=== PATIENT | male | born 1980 | race Caucasian/White ===

== ENCOUNTER 2018-10-17 11:00 | Emergency (ER) | payer OTHER ==
[2018-10-17] MEDS ORDERED: Sodium Chloride 0.9% 1,000 ML IV ONE (11:23)
[2018-10-17] MEDS ORDERED: Ondansetron 4 MG/2 ML SDV IVPUSH ONE (11:23)
--- NOTE | 2018-10-17 11:29 | EDM.PDOC ---
ED HPI GENERAL MEDICAL PROBLEM - General Chief Complaint: Gastrointestinal Problem Stated Complaint: POSS STAPH INFECTION Time Seen by Provider: 10/17/18 11:18 Source of Information: Reports: Patient History Limitations: Reports: No Limitations - History of Present Illness INITIAL COMMENTS - FREE TEXT/NARRATIVE: HISTORY AND PHYSICAL: History of present illness: Patient is a 38-year-old male presents to the ED today with concern for numerous episodes of diarrhea and nausea. Patient states this is ongoing the past 3 days and he has not been able to eat or drink much. He states today he has not been able to eat or drink anything but yesterday has had about half of his usual amount of food and fluids. He describes the diarrhea as watery and occurs every 15-20 minutes. He denies odor of the stool. Patient states he has not had any pain with this. He states he has not vomited but has several episodes where he thought he was. He states he has had a fever the past 2 days and has been taking Tylenol to keep it down. He states he has been sweating constantly. Patient denies chest pain, shortness of breath, or cough. Denies headache, neck stiff ness, change in vision, syncope, or near syncope. She denies vomiting, abdominal pain, constipation, or dysuria. Has not noted any blood in urine or stool. Review of systems: As per history of present illness and below otherwise all systems reviewed and negative. Past medical history: As per history of present illness and as reviewed below otherwise noncontributory. Surgical history: As per history of present illness and as reviewed below otherwise noncontributory. Social history: See social history for further information Family history: As per history of present illness and as reviewed below otherwise noncontributory. Physical exam: General: Patient is alert, oriented, and in no acute distress. He is sitting comfortably on exam table but is sweating. HEENT: Atraumatic, normocephalic, pupils equal and reactive bilaterally, negative for conjunctival pallor or scleral icterus, mucous membranes dry, TMs normal bilaterally, throat clear, neck supple, nontender, trachea midline. No drooling or trismus noted. No meningeal signs. No hot potato voice noted. Lungs: Clear to auscultation, breath sounds equal bilaterally, chest nontender. Heart: S1S2, regular rate and rhythm without overt murmur Abdomen: Soft, nondistended, nontender. Negative for masses or hepatosplenomegaly. Negative for costovertebral tenderness. Pelvis: Stable nontender. Genitourinary: Deferred. Rectal: Deferred. Skin: Intact, warm, dry. No lesions or rashes noted. Extremities: Atraumatic, negative for cords or calf pain. Neurovascular unremarkable. Neuro: Awake, alert, oriented. Cranial nerves II through XII unremarkable. Cerebellum unremarkable. Motor and sensory unremarkable throughout. Exam nonfocal. Notes: Laboratory today is reassuring. Patient was unable to leave a stool sample while in the ED today. Supplies were given for home collection. These results were shared with patient. Supportive care measures were reviewed and discussed. Voices understanding and is agreeable to plan of care. Denies any further questions or concerns at this time. Diagnostics: CBC, CMP, UA, stool studies Therapeutics: Zofran, saline Prescription: Zofran Impression: Gastroenteritis Plan: 1. Encourage small but frequent sips of fluids to prevent dehydration. 2. Take medications as prescribed. 3. Supplies for stool studies have been sent with you. Bring me back to the lab at the hospital. 4. Follow-up with her primary care provider as discussed. 5. Return to the ED as needed and as discussed. Definitive disposition and diagnosis as appropriate pending reevaluation and review of above. - Related Data Allergies Allergy/AdvReac Type Severity Reaction Status Date / Time No Known Allergies Allergy Verified 10/17/18 11:23 Home Meds: Home Meds . [No Known Home Meds] 10/17/18 [History] ED ROS GENERAL - Review of Systems Review Of Systems: ROS reveals no pertinent complaints other than HPI. ED EXAM, GI/ABD - Physical Exam Exam: See Below (See dictation) Course - Vital Signs Last Recorded V/S: Last Vital Signs Temp 96.1 F 10/17/18 11:21 Pulse 93 10/17/18 11:21 Resp 18 10/17/18 11:21 BP 135/96 H 10/17/18 11:21 Pulse Ox 94 L 10/17/18 11:21 - Orders/Labs/Meds Orders: Active Orders 24 hr Category Date Time Status Communication Order [RC] STAT Care 10/17/18 12:27 Active Communication Order [RC] STAT Care 10/17/18 12:27 Active CDIFF TOX A+B [OP] Stat Lab 10/17/18 11:24 Ordered CULTURE STOOL + CAMPY+SHIGATOX [RM] Stat Lab 10/17/18 11:24 Ordered OVA & PARASITES BY IMMUNOASSAY [MREF] Stat Lab 10/17/18 11:24 Ordered UA RFX LESA AND CULT IF INDIC [URIN] Stat Lab 10/17/18 11:25 Ordered Labs: Laboratory Tests 10/17/18 10/17/18 Range/Units 11:36 11:36 WBC 5.91 (4.0-11.0) K/uL RBC 5.41 (4.50-5.90) M/uL Hgb 17.1 H (13.0-17.0) g/dL Hct 48.7 (38.0-50.0) % MCV 90.0 (80.0-98.0) fL MCH 31.6 (27.0-32.0) pg MCHC 35.1 (31.0-37.0) g/dL RDW Std Deviation 42.8 (28.0-62.0) fl RDW Coeff of Deepali 13 (11.0-15.0) % Plt Count 198 (150-400) K/uL MPV 9.00 (7.40-12.00) fL Add Manual Diff YES Neutrophils % (Manual) 61 (48.0-80.0) % Band Neutrophils % 2 % Lymphocytes % (Manual) 30 (16.0-40.0) % Monocytes % (Manual) 4 (0.0-15.0) % Basophils % (Manual) 3 H (0.0-1.5) % Nucleated RBC % 0.0 /100WBC Absolute Seg Neuts 3.6 (1.4-5.7) Band Neutrophils # 0.1 Lymphocytes # (Manual) 1.8 (0.6-2.4) Monocytes # (Manual) 0.2 (0.0-0.8) Basophils # (Manual) 0.2 H (0.0-0.1) Nucleated RBCs # 0 K/uL Sodium 137 (136-148) mmol/L Potassium 3.8 (3.5-5.1) mmol/L Chloride 101 (98-107) mmol/L Carbon Dioxide 25.1 (21.0-32.0) mmol/L BUN 15 (7.0-18.0) mg/dL Creatinine 1.1 (0.8-1.3) mg/dL Est Cr Clr Drug Dosing 94.02 mL/min Estimated GFR (MDRD) > 60.0 ml/min Glucose 102 (74-106) mg/dL Calcium 9.4 (8.5-10.1) mg/dL Total Bilirubin 0.5 (0.2-1.0) mg/dL AST 15 (15-37) IU/L ALT 33 (14-63) IU/L Alkaline Phosphatase 82 (46-116) U/L Total Protein 7.9 (6.4-8.2) g/dL Albumin 3.7 (3.4-5.0) g/dL Globulin 4.2 H (2.6-4.0) g/dL Albumin/Globulin Ratio 0.9 (0.9-1.6) Meds: Medications Discontinued Medications Generic Name Dose Route Start Last Admin Trade Name Freq PRN Reason Stop Dose Admin Sodium Chloride 1,000 mls @ 999 mls/hr 10/17/18 11:23 10/17/18 11:57 Normal Saline IV 10/17/18 12:23 999 mls/hr STAT ONE Administration Ondansetron HCl 4 mg 10/17/18 11:23 10/17/18 11:57 Zofran IVPUSH 10/17/18 11:24 4 mg ONETIME ONE Administration Departure - Departure Time of Disposition: 12:52 Disposition: Home, Self-Care 01 Clinical Impression: Gastroenteritis - Discharge Information Referrals: PCP,None [Primary Care Provider] - Forms: ED Department Discharge Additional Instructions: The following information is given to patients seen in the emergency department who are being discharged to home. This information is to outline your options for follow-up care. We provide all patients seen in our emergency department with a follow-up referral. The need for follow-up, as well as the timing and circumstances, are variable depending upon the specifics of your emergency department visit. If you don't have a primary care physician on staff, we will provide you with a referral. We always advise you to contact your personal physician following an emergency department visit to inform them of the circumstance of the visit and for follow-up with them and/or the need for any referrals to a consulting specialist. The emergency department will also refer you to a specialist when appropriate. This referral assures that you have the opportunity for follow-up care with a specialist. All of these measure are taken in an effort to provide you with optimal care, which includes your follow-up. Under all circumstances we always encourage you to contact your private physician who remains a resource for coordinating your care. When calling for follow-up care, please make the office aware that this follow-up is from your recent emergency room visit. If for any reason you are refused follow-up, please contact the [facility] Emergency Department at and asked to speak to the emergency department charge nurse. [facility] Primary Care [address] [place] [address] [facility] [address] [place] [id number] 1. Encourage small but frequent sips of fluids to prevent dehydration. 2. Take medications as prescribed. 3. Supplies for stool studies have been sent with you. Bring me back to the lab at the hospital. 4. Follow-up with her primary care provider as discussed. 5. Return to the ED as needed and as discussed. - My Orders Last 24 Hours: My Active Orders 10/17/18 11:24 CDIFF TOX A+B [OP] Stat CULTURE STOOL + CAMPY+SHIGATOX [RM] Stat OVA & PARASITES BY IMMUNOASSAY [MREF] Stat 10/17/18 11:25 UA RFX LESA AND CULT IF INDIC [URIN] Stat 10/17/18 12:27 Communication Order [RC] STAT Communication Order [RC] STAT - Assessment/Plan Last 24 Hours: My Active Orders 10/17/18 11:24 CDIFF TOX A+B [OP] Stat CULTURE STOOL + CAMPY+SHIGATOX [RM] Stat OVA & PARASITES BY IMMUNOASSAY [MREF] Stat 10/17/18 11:25 UA RFX LESA AND CULT IF INDIC [URIN] Stat 10/17/18 12:27 Communication Order [RC] STAT Communication Order [RC] STAT
[2018-10-17 12:10] LABS: CHLORIDE,CL 101 mmol/L (98-107); SODIUM,NA 137 mmol/L (136-148)
== END 2018-10-17 13:30 | disposition home or self-care (01) ==
LOC: MW.ED 11:00
DX: K52.9 Noninfective gastroenteritis and colitis, unspecified (principal)
CPT/HCPCS: 36415; 80053; 81001; 85025; 87046; 87324; 87328; 87329; 96361; 96374; 99284; J2405; J7040; 87899

== ENCOUNTER 2021-03-18 18:58 | Emergency (ER) | payer OTHER ==
--- NOTE | 2021-03-18 19:47 | EDM.PDOC ---
ED HPI GENERAL MEDICAL PROBLEM - General Chief Complaint: Upper Extremity Injury/Pain Stated Complaint: POSSIBLE LT BROKEN CLARISSABONE Time Seen by Provider: 03/18/21 19:46 Source of Information: Reports: Patient History Limitations: Reports: No Limitations - History of Present Illness INITIAL COMMENTS - FREE TEXT/NARRATIVE: HISTORY AND PHYSICAL: History of present illness: Review of systems: As per history of present illness and below otherwise all systems reviewed and negative. Past medical history: As per history of present illness and as reviewed below otherwise non contributory. Surgical history: As per history of present illness and as reviewed below otherwise noncontributory. Social history: See social history for further information Family history: As per history of present illness and as reviewed below otherwise noncontributory. Physical exam: General: Well developed and well nourished. Alert and orientated x 3. Nontoxic in appearance and in no acute distress. Vital signs are stable and have been reviewed by me. Nursing notes were reviewed. HEENT: Atraumatic, normocephalic, pupils equal and reactive bilaterally, negative for conjunctival pallor or scleral icterus, mucous membranes moist, TMs normal bilaterally, throat clear, neck supple, nontender, trachea midline. No drooling or trismus noted. No meningeal signs. No hot potato voice noted. Lungs: Clear to auscultation bilaterally. No wheezes, rales, or rhonchi. Chest nontender. Normal work of breathing, no accessory muscles used. Heart: S1S2, regular rate and rhythm without overt murmur, gallops, or rubs. No JVD. No peripheral edema Abdomen: Soft, nondistended, nontender. Normoactive bowel sounds. Negative for masses or costovertebral tenderness. Pelvis: Stable nontender. Genitourinary/Rectal: Deferred. Skin: Intact, warm, dry. No lesions or rashes noted. Hematologic: No petechiae or purpra. Mucosa appropriate color and normal nail bed color and refill. Extremities: Atraumatic, moves all extremities per self without difficulty or deficits, negative for cords or calf pain. Neurovascular unremarkable. Neuro: Awake, alert, oriented. Cranial nerves II through XII unremarkable. Cerebellum unremarkable. Motor and sensory unremarkable throughout. Exam nonfocal. Psychiatric: Mood and affect are appropriate. Normal thought process. Answering questions appropriately. Please note that the patient was seen and evaluated during the 2019 SARS-CoV-2 novel coronavirus pandemic period. Community viral transmission is ongoing at time of this encounter and the emergency department is operating under pandemic response procedures. Medical Decision Making: I have talked with the patient about today's findings, in addition to providing specific details for plan of care. Reassessment at the time of disposition demonstrates that the patient is in no acute distress. The patient is stable for discharge, counseling was provided and we discussed in great detail signs and symptoms that would prompt them to return to the Emergency Department. Medication, follow up and supportive care measures were reviewed and discussed. Voices understanding and is agreeable to plan of care. Denies any further questions or concerns at this time. Diagnostics: Therapeutics: Prescription: Impression: Plan: 1. You were evaluated today on an emergent basis. Your 2. You can alternate Tylenol and ibuprofen as needed for pain and fever management. 3. We encourage you to follow up with your primary care provider and/or recommended specialist in the next few days for re-evaluation and further care/management. 4. If your symptoms should worsen, new symptoms develop or any of the signs and symptoms we discussed should arise please return to the emergency room or call 911 (if needed). Definitive disposition and diagnosis as appropriate pending reevaluation and review of above. - Related Data Allergies Allergy/AdvReac Type Severity Reaction Status Date / Time No Known Allergies Allergy Verified 10/17/18 11:23 Home Meds: Home Meds Ondansetron [Zofran ODT] 4 mg PO Q6H PRN #6 tab.dis 10/17/18 [Rx] Past Medical History - Past Health History Medical/Surgical History: Denies Medical/Surgical History - Infectious Disease History Infectious Disease History: Reports: Chicken Pox Social & Family History - Family History Family Medical History: No Pertinent Family History Course - Orders/Labs/Meds Orders: Active Orders 24 hr Category Date Time Status Clavicle Lt [CR] Stat Exams 03/18/21 19:46 Ordered Departure - Discharge Information Referrals: PCP,None [Primary Care Provider] - - My Orders Last 24 Hours: My Active Orders 03/18/21 19:46 Clavicle Lt [CR] Stat - Assessment/Plan Last 24 Hours: My Active Orders 03/18/21 19:46 Clavicle Lt [CR] Stat
--- NOTE | 2021-03-18 20:26 | CR ---
INDICATION: Trauma. COMPARISON: None. TECHNIQUE: Two views the left clavicle. FINDINGS: There is a comminuted displaced midshaft fracture. There is approximately 1 shafts width inferior displacement of the primary distal fracture fragment relative to the proximal. Moderate size butterfly fragment. AC and glenohumeral joints are preserved. Soft tissues are unremarkable. IMPRESSION: Comminuted displaced left clavicle fracture, as above. Dictated by Francisco Durbin MD @ 03/18/2021 8:24:20 PM Dictated by: Francisco Durbin MD @ 03/18/2021 20:24:28 (Electronically Signed)
--- NOTE | 2021-03-18 20:55 | EDM.PDOC ---
ED HPI GENERAL MEDICAL PROBLEM - General Chief Complaint: Upper Extremity Injury/Pain Stated Complaint: POSSIBLE LT BROKEN CLARISSABONE Time Seen by Provider: 03/18/21 19:46 - History of Present Illness INITIAL COMMENTS - FREE TEXT/NARRATIVE: History of present illness: [] The patient fell off skateboard prior to arrival and injury to the left shoulder. He denies any other injury. He has significant pain worse with movement and touching on the left clavicle. Review of systems: As per history of present illness and below otherwise all systems reviewed and negative. Past medical history: As per history of present illness and as reviewed below otherwise noncontributory. Surgical history: As per history of present illness and as reviewed below otherwise noncontributory. Social history: No reported history of drug or alcohol abuse. Family history: As per history of present illness and as reviewed below otherwise noncontributory. Physical exam: Constitutional - well developed, well-nourished and in no acute distress HEENT -C-spine cleared by Nexus criteria-normocephalic, no evidence of trauma - external nose and mouth normal - no mass in neck and no JVD - mucosae moist EYES - full EOM, PERRL, no icterus - no evidence of inflammation, injection, or drainage Respiratory - no respiratory distress, equal bilateral expansion, lungs clear to auscultation and no abnormal lung sounds Cardiovascular -distal integrity of the left upper extremity circulation verified including capillary refill and pulses regular Rhythm with S1 and S2 appreciated and no murmur, gallop or rub. GI - abdomen soft without distension or organomegaly - normal bowel sounds - no guard or rebound Musculoskeletal tender left clavicle-no gross deformity of long bones or joints - no tenderness, swelling or edema Neurologic -M you are motor sensory exam intact alert and oriented times four - CN II-XII grossly intact - motor sensory and coordination symmetrically normal Psychiatric - appropriate mood and affect with normal thought content Hematologic - No petechiae or purpura - mucosa appropriate color and sclera not pale - normal nail bed color and refill Integument - no rash or evidence of trauma - normal turgor Diagnostics: [] Therapeutics: [] Impression: [] Plan: [] Definitive disposition and diagnosis as appropriate pending reevaluation and review of above. left shoulder Pain Score (Numeric/FACES): 7 - Related Data Allergies Allergy/AdvReac Type Severity Reaction Status Date / Time No Known Allergies Allergy Verified 03/18/21 20:37 Home Meds: Home Meds Acetaminophen/oxyCODONE [Percocet 325-10 MG] 1 tab PO Q4H PRN #20 tab 03/18/21 [Rx] Past Medical History - Past Health History Medical/Surgical History: Denies Medical/Surgical History HEENT History: Reports: None Cardiovascular History: Reports: None Respiratory History: Reports: None Gastrointestinal History: Reports: None Genitourinary History: Reports: None Musculoskeletal History: Reports: None Neurological History: Reports: None Psychiatric History: Reports: None Endocrine/Metabolic History: Reports: None Insulin Pump Model and Checkout Operator: none Hematologic History: Reports: None Immunologic History: Reports: None Oncologic (Cancer) History: Reports: None Dermatologic History: Reports: None - Infectious Disease History Infectious Disease History: Reports: Chicken Pox - Past Surgical History Head Surgeries/Procedures: Reports: None Social & Family History - Family History Family Medical History: No Pertinent Family History - Caffeine Use Caffeine Use: Reports: Coffee - Recreational Drug Use Recreational Drug Use: No ED ROS GENERAL - Review of Systems Review Of Systems: Comprehensive ROS is negative, except as noted in HPI. ED EXAM, GENERAL - Physical Exam Exam: See Below Free Text/Narrative:: My physical exam is in the HPI Course - Vital Signs Text/Narrative:: DME-patient needs a sling for indeterminate amount of time but at least 3 weeks. This will be provided. Last Recorded V/S: Last Vital Signs Temp 36.9 C 03/18/21 20:37 Pulse 63 03/18/21 20:37 Resp 18 03/18/21 20:37 BP 142/71 H 03/18/21 20:37 Pulse Ox 97 03/18/21 20:37 - Orders/Labs/Meds Orders: Active Orders 24 hr Category Date Time Status DME for Discharge [COMM] Stat Oth 03/18/21 20:45 Ordered Departure - Departure Time of Disposition: 20:55 Disposition: Home, Self-Care 01 Clinical Impression: Fracture of left clavicle - Discharge Information Prescriptions: Acetaminophen/oxyCODONE [Percocet 325-10 MG] 1 tab PO Q4H PRN #20 tab PRN Reason: Pain (Moderate 4-6) Instructions: Clavicle Fracture, [id number] Referrals: PCP,None [Primary Care Provider] - Forms: ED Department Discharge Additional Instructions: [facility] [address], [address] [place] [address] The following information is given to patients seen in the emergency department who are being discharged to home. This information is to outline your options for follow-up care. We provide all patients seen in our emergency department with a follow-up referral. The need for follow-up, as well as the timing and circumstances, are variable depending upon the specifics of your emergency department visit. If you don't have a primary care physician on staff, we will provide you with a referral. We always advise you to contact your personal physician following an e mergency department visit to inform them of the circumstance of the visit and for follow-up with them and/or the need for any referrals to a consulting specialist. The emergency department will also refer you to a specialist when appropriate. This referral assures that you have the opportunity for follow-up care with a specialist. All of these measure are taken in an effort to provide you with op timal care, which includes your follow-up. Under all circumstances we always encourage you to contact your private physician who remains a resource for coordinating your care. When calling for follow-up care, please make the office aware that this follow-up is from your recent emergency room visit. If for any reason you are refused follow-up, please contact the [facility] Emergency Department at and asked to speak to the emergency department charge nurse. Sepsis Event Note (ED) - Focused Exam Vital Signs: Vital Signs Temp Pulse Resp BP Pulse Ox 03/18/21 20:37 36.9 C 63 18 142/71 H 97 - My Orders Last 24 Hours: My Active Orders 03/18/21 20:45 DME for Discharge [COMM] Stat - Assessment/Plan Last 24 Hours: My Active Orders 03/18/21 20:45 DME for Discharge [COMM] Stat
[2021-03-18] MEDS ORDERED: Acetaminophen/oxyCODONE 325-10 MG Tab PO ONE (20:58)
== END 2021-03-18 21:56 | disposition home or self-care (01) ==
LOC: MW.ED 18:58
DX: S42.022A Displaced fracture of shaft of left clavicle, initial encounter for closed fracture (principal); V00.131A Fall from skateboard, initial encounter; Y93.51 Activity, roller skating (inline) and skateboarding
CPT/HCPCS: 73000; 99283; A9270